=== PATIENT | female | born 2000 | race Caucasian/White ===

== ENCOUNTER 2020-07-22 07:19 | Emergency (ER) | payer OTHER ==
[~2020-07-22] VITALS: Ht 167.6 cm; Wt 52.2 kg
[2020-07-22] MEDS ORDERED: SEROQUEL 50 MG50 M1 PO (07:31)
[2020-07-22] MEDS ORDERED: NAPROSYN500 MG PO (09:04)
[2020-07-22] MEDS ORDERED: ZANAFLEX4 MG PO (09:04)
[2020-07-22 09:53] VITALS: BP 122/71
== END 2020-07-22 09:53 | disposition home or self-care (01) ==
LOC: ER 07:19
DX: S13.9XXA Sprain of joints and ligaments of unspecified parts of neck, initial encounter (principal); S23.3XXA Sprain of ligaments of thoracic spine, initial encounter; Z88.1 Allergy status to other antibiotic agents; Z79.899 Other long term (current) drug therapy; V49.49XA Driver injured in collision with other motor vehicles in traffic accident, initial encounter; Y93.I9 Activity, other involving external motion; Y92.413 State road as the place of occurrence of the external cause; Y99.8 Other external cause status

== ENCOUNTER 2020-07-22 16:30 | Emergency (ER) | payer OTHER ==
[~2020-07-22] VITALS: Ht 165.1 cm; Wt 51.3 kg
[~2020-07-22 16:30] MED LIST: NAPROSYN500 MG PO; SEROQUEL 50 MG50 M1 PO; ZANAFLEX4 MG PO
[2020-07-22 19:17] VITALS: BP 120/73
== END 2020-07-22 19:07 | disposition home or self-care (01) ==
LOC: ER 16:30
DX: S06.0X9A Concussion with loss of consciousness of unspecified duration, initial encounter (principal); Z88.1 Allergy status to other antibiotic agents; V49.49XA Driver injured in collision with other motor vehicles in traffic accident, initial encounter; Y93.I9 Activity, other involving external motion; Y92.413 State road as the place of occurrence of the external cause; Y99.8 Other external cause status

== ENCOUNTER 2020-09-04 12:12 | Emergency (ER) | payer OTHER ==
[~2020-09-04] VITALS: Ht 167.6 cm; Wt 54.4 kg
[2020-09-04] MEDS ORDERED: VENTOLIN HFA INH8 GM INH (13:29)
[2020-09-04] MEDS ORDERED: PREDNISONE 20 M20 MG PO (13:29)
[2020-09-04] MEDS ORDERED: DOXYCYCLINE 10100 M2 PO (13:29)
[2020-09-04 13:55] VITALS: BP 152/92
== END 2020-09-04 13:55 | disposition home or self-care (01) ==
LOC: ER 12:12
DX: J18.9 Pneumonia, unspecified organism (principal); Z79.899 Other long term (current) drug therapy; Z88.1 Allergy status to other antibiotic agents; Z20.822 Contact with and (suspected) exposure to COVID-19

== ENCOUNTER 2020-11-14 10:15 | Emergency (ER) | payer OTHER ==
[~2020-11-14] VITALS: Ht 165.1 cm; Wt 52.2 kg
[~2020-11-14 10:15] MED LIST changes: +DOXYCYCLINE 10100 M2 PO; +PREDNISONE 20 M20 MG PO; +VENTOLIN HFA INH8 GM INH
[2020-11-14] MEDS ORDERED: ADDERALL 10 MG10 MG PO (10:51)
[2020-11-14] MEDS ORDERED: IBU600 MG PO (13:06)
[2020-11-14] MEDS ORDERED: CEPHALEXIN500 MG PO (13:06)
[2020-11-14 14:20] VITALS: BP 119/83
== END 2020-11-14 14:20 | disposition home or self-care (01) ==
LOC: ER 10:15
DX: S61.412A Laceration without foreign body of left hand, initial encounter (principal); S61.212A Laceration without foreign body of right middle finger without damage to nail, initial encounter; Z79.899 Other long term (current) drug therapy; Z88.1 Allergy status to other antibiotic agents; W26.0XXA Contact with knife, initial encounter; Y93.89 Activity, other specified; Y92.89 Other specified places as the place of occurrence of the external cause; Y99.8 Other external cause status